=== PATIENT | male | born 1935 | race Caucasian/White ===

== ENCOUNTER → 2017-03-21 | Outpatient (CLI) | payer OTHER ==
[~2017-03-21] MED LIST: ALBU6.7H INH; ASPI81TA82 PO; BETH25TA3 PO; FORM12I INH; HYDR-3533 PO; METO25 PO; MEVA40TA6 PO; MOME1AER2 INH; OMEP20CA5 PO; TERA10CA3 PO
[2017-03-21 11:20] LABS: BLOOD GAS BASE EXCESS 0.7 mmol/L (-2-2); BLOOD GAS CARBOXYHEMOGLOBIN 1.5 % (0-4); BLOOD GAS HCO3 25 mmol/L (22-26); BLOOD GAS METHEMOGLOBIN 1.1 % (0-2); BLOOD GAS O2 HGB SATURATION 95 % (90-100); BLOOD GAS OXYGEN CONTENT 18.6 Vol % (12.0-20.0); BLOOD GAS PCO2 38 mmHG (38-42); BLOOD GAS PO2 90 mmHG (61-120); BLOOD GAS TOTAL HGB 13.9 G/DL (12.0-16.0); TEMP CORR TO 98.6
[2017-03-21 11:21] LABS: CRITICAL VALUE NO; DRAW SITE RT RADIAL; FIO2 21 %; NUMBER OF ARTERIAL PUNCTURES 1; STAT NO; ULNAR PULSE PRESENT
--- NOTE | 2017-03-27 11:06 | RSPPFT ---
DATE OF PROCEDURE: 03/21/17 COMMENTS: Spirometry demonstrates an FEV1 of 0.8 at 31% of predicted, FVC of 2.0 at 48%, FEV1/FVC ratio is 41. The FEF 25-75 is 11% of predicted. Post-bronchodilator study demonstrated significant improvements in the FEF 25-75, FEV1 and FVC. Lung volumes demonstrated a raised RV/TLC ratio. Diffusion capacity is mildly reduced. Flow volume indicate severe obstruction. IMPRESSION: 1. Severe obstructive disease. 2. Significant response to use of bronchodilator indicating reversibility. 3. Mild reduction in diffusion capacity.
== END ==
LOC: PHRSP 10:26
DX: R05 Cough (principal); J44.9 Chronic obstructive pulmonary disease, unspecified; J61 Pneumoconiosis due to asbestos and other mineral fibers
CPT/HCPCS: 36600; 82805; 94060; 94726; 94729